=== PATIENT | female | born 1965 | race American Indian/Alaskan Native ===

== ENCOUNTER 2017-01-21 08:10 | Emergency (ER) | payer OTHER ==
[2017-01-21 08:10] VITALS: BMI 43.2
[2017-01-21 08:18] VITALS: RESP 18; TEMP 97.7
--- NOTE | 2017-01-21 08:53 | C.PDOC ---
History Of Present Illness 51 y/o female presents to ED with complaint of bilateral burning pain in her feet for "months". Patient denies any specific falls/injuries. Patient was seen by PMD Dr. Morris, started on gabapentin several weeks ago. Her dose has been increased but so far she reports no improvement of the pain. She denies chest pain, SOB, palpitations, fever. She has been taking Motrin 800 w/o relief. Patient already has podiatry appointment scheduled for tomorrow. She also reports she has had bilateral venous dopplers that were (-) for DVTs. Patient denies h/o DM. Time Seen by Provider: 01/21/17 08:38 Chief Complaint (Nursing): Lower Extremity Problem/Injury History Per: Patient History/Exam Limitations: no limitations Onset/Duration Of Symptoms: Persistent ("months") Current Symptoms Are (Timing): Still Present Severity: Moderate Past Medical History Reviewed: Historical Data, Nursing Documentation, Vital Signs Vital Signs: Last Vital Signs Temp 97.7 F 01/21/17 09:48 Pulse 71 01/21/17 09:48 Resp 18 01/21/17 09:48 BP 117/64 01/21/17 09:48 Pulse Ox 98 01/21/17 09:48 - Medical History PMH: Asthma, Bronchitis, Gastrointestinal Ulcer, HTN Family History: States: Hypertension - Social History Hx Tobacco Use: No Hx Alcohol Use: No Hx Substance Use: No - Immunization History Hx Tetanus Toxoid Vaccination: No Hx Influenza Vaccination: No Hx Pneumococcal Vaccination: No Review Of Systems Except As Marked, All Systems Reviewed And Found Negative. Constitutional: Negative for: Fever, Chills Cardiovascular: Negative for: Chest Pain Respiratory: Negative for: Shortness of Breath, Wheezing Gastrointestinal: Negative for: Nausea, Vomiting Musculoskeletal: Positive for: Foot Pain (bilateral) Skin: Negative for: Rash Neurological: Negative for: Weakness, Numbness Physical Exam - Physical Exam Appears: Non-toxic, Other (in mild pain ) Skin: Warm, Dry Head: Normacephalic Oral Mucosa: Moist Cardiovascular: Rhythm Regular Respiratory: Normal Breath Sounds, No Rales, No Rhonchi, No Wheezing Back: Normal Inspection Extremity: Normal ROM, Tenderness (Bilateral feet: diffusely tender to palpation at plantar aspect), No Pedal Edema, No Calf Tenderness, Capillary Refill (< 2 sec all digits ), No Deformity, Other (No swelling, erythema, or rashes of bilateral feet. ) Extremity: Bilateral: Normal Color And Temperature Pulses: Left Dorsalis Pedis: Normal, Right Dorsalis Pedis: Normal Neurological/Psych: Oriented x3, Normal Motor, Normal Sensation Gait: Steady ED Course And Treatment O2 Sat by Pulse Oximetry: 97 (RA) Pulse Ox Interpretation: Normal Progress Note: Patient given IM toradol for pain. Reevaluation Time: 09:30 Reassessment Condition: Improved (Patient reassessed, pain has improved and she is able to ambulate normally. Patient given rxs for Naprosyn and Vicodin, and she was instructed to continue gabapentin and keep her scheduled podiatry appt tomorrow. Patient instructed to follow up with Dr. Morris in 1-2 days as well. Patient understands she return to ED if symptoms worsen.) Disposition Counseled Patient/Family Regarding: Studies Performed, Diagnosis, Need For Followup, Rx Given - Disposition Referrals: Theodore Morris MD [Staff Provider] - Disposition: HOME/ ROUTINE Disposition Time: 09:30 Condition: STABLE Additional Instructions: FOLLOW UP WITH YOUR DOCTOR IN 1-2 DAYS, AND WITH PODIATRY TOMORROW SCHEDULED CONTINUE YOUR GABAPENTIN RETURN TO ER IF SYMPTOMS WORSEN Prescriptions: Hydrocodone/Acetaminophen [Hydrocodon-Acetaminophen 5-325] 1 each PO Q6 PRN #12 tablet PRN Reason: Pain, Moderate (4-7) Naproxen [Naprosyn] 1 tab PO BID PRN #25 tab PRN Reason: Pain Instructions: Peripheral Neuropathy (ED) Print Language: MALDIVIAN - POA Present On Arrival: None - Clinical Impression Clinical Impression: Peripheral neuropathy - Scribe Statement The provider has reviewed the documentation as recorded by the Johanna Meléndez Provider Scribe Attestation: All medical record entries made by the Johanna were at my direction and personally dictated by me. I have reviewed the chart and agree that the record accurately reflects my personal performance of the history, physical exam, medical decision making, and the department course for this patient. I have also personally directed, reviewed, and agree with the discharge instructions and disposition.
[2017-01-21 09:49] VITALS: BP 117/64; PULSE 71
[2017-01-26 13:40] VITALS: O2SAT 97
== END 2017-01-21 09:49 | disposition home or self-care (01) ==
LOC: C.ER 08:10
DX: G62.9 Polyneuropathy, unspecified (principal)
CPT/HCPCS: 96372; 99284; J1885

== ENCOUNTER 2017-02-22 06:39 | Emergency (ER) | payer OTHER ==
[2017-02-22 06:39] VITALS: BMI 43.2
[2017-02-22 06:53] VITALS: O2SAT 98
--- NOTE | 2017-02-22 07:40 | C.PDOC ---
History Of Present Illness <LoaizaUnique contreras Fior - Last Filed: 02/22/17 07:44> <Zuri Glass - Last Filed: 02/22/17 07:51> Patient is a 51 y/o female, with history of left knee arthroscopy 20 years ago for a tear, and chronic knee pain, presents to the ED for evaluation of worsening of left knee pain and swelling for the past several days. Pt reports being seen here in the past with similar complaints. Pt reports being seen by Dr. Davalos, and was given a Rx for left knee x-ray. Pt notes taking Gabapentin, and Motrin 800mg for pain with no relief. Otherwise, denies any sensory changes , fever, redness, fall, injury, or any other associated symptoms at this time. (Unique Loaiza) History Per: Patient History/Exam Limitations: no limitations Onset/Duration Of Symptoms: Days Current Symptoms Are (Timing): Still Present Severity: Severe Recent travel outside of the [place]: No Additional History Per: Patient <LoaizaDuongUnique L - Last Filed: 02/22/17 07:44> <Zuri Glass - Last Filed: 02/22/17 07:51> Time Seen by Provider: 02/22/17 07:16 Chief Complaint (Nursing): Lower Extremity Problem/Injury Past Medical History Reviewed: Historical Data, Nursing Documentation, Vital Signs - Medical History PMH: Asthma, Bronchitis, Gastrointestinal Ulcer, HTN Family History: States: Hypertension - Social History Hx Tobacco Use: No Hx Alcohol Use: No Hx Substance Use: No - Immunization History Hx Tetanus Toxoid Vaccination: No Hx Influenza Vaccination: No Hx Pneumococcal Vaccination: No <Unique Loaiza - Last Filed: 02/22/17 07:44> Review Of Systems Except As Marked, All Systems Reviewed And Found Negative. Constitutional: Negative for: Fever, Chills Musculoskeletal: Positive for: Leg Pain (left knee pain and swelling) Skin: Negative for: Rash Neurological: Negative for: Weakness, Numbness <LoaizaDuongUnique L - Last Filed: 02/22/17 07:44> Physical Exam - Physical Exam Appears: Non-toxic, No Acute Distress, Other (morbidly obese) Skin: Normal Color, Warm, Dry, No Rash Head: Atraumatic, Normacephalic Extremity: Normal ROM (pain with movement of left knee joint), Tenderness (non- focal left knee), No Pedal Edema, No Calf Tenderness, Capillary Refill (< 2 sec. ), No Deformity, No Swelling (no knee swelling) Extremity: Bilateral: Normal Color And Temperature Pulses: Left Dorsalis Pedis: Normal, Right Dorsalis Pedis: Normal Neurological/Psych: Oriented x3, Normal Speech, Normal Cognition <Unique Loaiza - Last Filed: 02/22/17 07:44> ED Course And Treatment O2 Sat by Pulse Oximetry: 98 (on RA) Pulse Ox Interpretation: Normal <Unique Loaiza - Last Filed: 02/22/17 07:44> Progress Note: Left knee x-ray ordered and reviewed. Pt was given Toradol IM in the ER. On re-exam, pt reports some improvement of pain. <Zuri Glass - Last Filed: 02/22/17 07:51> - PA / EMERGENCY MEDICINE / Resident Statement MD/DO has reviewed & agrees with the documentation as recorded. - Scribe Statement The provider has reviewed the documentation as recorded by the Scribe <Unique Loaiza - Last Filed: 02/22/17 07:44> <Zuri Glass - Last Filed: 02/22/17 07:51> - Scribe Statement Aleksandra Rodriges All medical record entries made by the Scribe were at my direction and personally dictated by me. I have reviewed the chart and agree that the record accurately reflects my personal performance of the history, physical exam, medical decision making, and the department course for this patient. I have also personally directed, reviewed, and agree with the discharge instructions and disposition. (Unique Loaiza)
--- NOTE | 2017-02-22 07:54 | C.PDOC ---
History Of Present Illness Patient is a 51 y/o female, with history of left knee arthroscopy 20 years ago for a tear, and chronic knee pain, presents to the ED for evaluation of worsening of left knee pain and swelling for the past several days. Pt reports being seen here in the past with similar complaints. Pt reports being seen by Dr. Davalos, and was given a Rx for left knee x-ray. Pt notes taking Gabapentin, and Motrin 800mg for pain with no relief. Otherwise, denies any sensory changes , fever, redness, fall, injury, or any other associated symptoms at this time. Time Seen by Provider: 02/22/17 07:16 Chief Complaint (Nursing): Lower Extremity Problem/Injury History Per: Patient History/Exam Limitations: no limitations Onset/Duration Of Symptoms: Days Current Symptoms Are (Timing): Still Present Severity: Severe Recent travel outside of the [place]: No Additional History Per: Patient Past Medical History Reviewed: Historical Data, Nursing Documentation, Vital Signs Vital Signs: Last Vital Signs Temp 98.5 F 02/22/17 08:33 Pulse 73 02/22/17 08:33 Resp 16 02/22/17 08:33 BP 131/84 02/22/17 08:33 Pulse Ox 98 02/22/17 08:33 - Medical History PMH: Asthma, Bronchitis, Gastrointestinal Ulcer, HTN Family History: States: Hypertension - Social History Hx Tobacco Use: No Hx Alcohol Use: No Hx Substance Use: No - Immunization History Hx Tetanus Toxoid Vaccination: No Hx Influenza Vaccination: No Hx Pneumococcal Vaccination: No Review Of Systems Except As Marked, All Systems Reviewed And Found Negative. Constitutional: Negative for: Fever, Chills Musculoskeletal: Positive for: Leg Pain (left knee pain and swelling) Skin: Negative for: Rash Neurological: Negative for: Weakness, Numbness Physical Exam - Physical Exam Appears: Non-toxic, No Acute Distress, Other (morbidly obese) Skin: Warm, Dry, No Rash, No Other (no erythema ortactile warmth) Head: Atraumatic, Normacephalic Eye(s): bilateral: Normal Inspection Neck: Normal ROM Extremity: Normal ROM (pain with movement of left knee joint), Tenderness (non- focal left knee), No Pedal Edema, No Calf Tenderness, Capillary Refill (< 2 sec. ), No Deformity, No Swelling (no knee swelling) Pulses: Left Dorsalis Pedis: Normal, Right Dorsalis Pedis: Normal Neurological/Psych: Oriented x3, Normal Speech ED Course And Treatment O2 Sat by Pulse Oximetry: 98 (on RA) Pulse Ox Interpretation: Normal - Other Rad Left knee X-Ray: Interpreted by Me, Viewed By Me Interpretation: Moderate degenerative changes and mild suprapatellar joint effusion, ossific lesion in suprapatellar area, likely calcification. No acute displaced fracture or dislocation identified. Progress Note: Left knee x-ray ordered and reviewed. Pt was given Toradol IM in the ER. Patient recently seen in ED 01/21/17 for bilateral foot pain, diagnosed with neuropathy and prescribed naproxen and vicodin. [facility] reviewed patient has the one vicodin dispensed, no other Rx. Reevaluation Time: 08:20 Reassessment Condition: Improved (On re-exam, pt reports some improvement of pain. Knee immobilizer applied. Crutches offered, patient refused. discussed xray results with patient. Advise follow up with PCP and orthopedic.) Disposition Counseled Patient/Family Regarding: Need For Followup, Rx Given - Disposition Referrals: Theodore Morris MD [Staff Provider] - Disposition: HOME/ ROUTINE Disposition Time: 08:20 Condition: STABLE Additional Instructions: Follow up with orthopedic in few days for further evaluation Take pain medication as needed for severe pain and also Motrin 800mg Prescriptions: traMADol [Ultram] 50 mg PO Q8 #20 tab Instructions: Calcific Tendinitis (ED), Knee Pain (ED) - POA Present On Arrival: None - Clinical Impression Clinical Impression: Knee pain, Tendonitis - PA / FINANCIAL AID ADMINISTRATOR / Resident Statement MD/DO has reviewed & agrees with the documentation as recorded. - Scribe Statement The provider has reviewed the documentation as recorded by the Paytonibrico Rodriges All medical record entries made by the Johanna were at my direction and personally dictated by me. I have reviewed the chart and agree that the record accurately reflects my personal performance of the history, physical exam, medical decision making, and the department course for this patient. I have also personally directed, reviewed, and agree with the discharge instructions and disposition.
[2017-02-22 08:35] VITALS: BP 131/84; PULSE 73; RESP 16; TEMP 98.5
--- NOTE | 2017-02-22 10:40 | RAD ---
PROCEDURE: Left Knee Radiographs. HISTORY: Pain. COMPARISON: 08/16/2015 FINDINGS: BONES: There is mild periarticular bone demineralization. There is no acute fracture or bone destruction. Adjacent to the patella, there is redemonstration of heterotopic bone probably related to chronic injury. JOINTS: Again seen is moderate tricompartmental degenerative osteoarthrosis with reduced joint spaces, marginal osteophytes and chondrocalcinosis, worse in the medial compartment. JOINT EFFUSION: There is moderate suprapatellar joint effusion. OTHER FINDINGS: None. IMPRESSION: Moderate tricompartmental degenerative osteoarthrosis, worse in the medial compartment and moderate suprapatellar joint effusion. No interval change.
== END 2017-02-22 08:35 | disposition home or self-care (01) ==
LOC: C.ER 06:39
DX: M25.562 Pain in left knee (principal); M77.9 Enthesopathy, unspecified; I10 Essential (primary) hypertension
CPT/HCPCS: 73562; 96372; 99285; J1885